=== PATIENT | male | born 1950 | race Two or more races ===

== ENCOUNTER 2017-09-05 08:27 | Outpatient (CLI) | payer OTHER | END 2017-09-05 08:38 | disposition home or self-care (01) | LOC: SONOGRAMA 08:27 | DX: R10.13 Epigastric pain (principal) ==

== ENCOUNTER → 2017-10-16 | Outpatient (CLI) | payer OTHER | END | disposition home or self-care (01) | LOC: SONOGRAMA 07:31 | DX: J32.4 Chronic pansinusitis (principal) ==

== ENCOUNTER → 2017-11-14 12:30 | Outpatient (CLI) | payer OTHER | END | disposition home or self-care (01) | LOC: RAD 12:30 | DX: J41.0 Simple chronic bronchitis (principal) ==

== ENCOUNTER 2018-09-17 14:08 | Outpatient (CLI) | payer OTHER | END 2018-09-17 15:30 | disposition home or self-care (01) | LOC: SONOGRAMA 14:08 | DX: Q44.6 Cystic disease of liver (principal); R10.13 Epigastric pain ==

== ENCOUNTER 2018-09-17 14:45 | Outpatient (CLI) | payer OTHER | END 2018-09-17 14:49 | disposition home or self-care (01) | LOC: RAD 14:45 | DX: M25.562 Pain in left knee (principal); M25.561 Pain in right knee ==

== ENCOUNTER 2018-12-11 11:09 | Outpatient (CLI) | payer OTHER | END 2018-12-11 11:15 | disposition home or self-care (01) | LOC: RAD 11:09 | DX: J21.8 Acute bronchiolitis due to other specified organisms (principal) ==

== ENCOUNTER 2019-02-19 08:09 | Outpatient (CLI) | payer OTHER | END 2019-02-19 09:58 | disposition home or self-care (01) | LOC: RAD 08:09 | DX: M25.512 Pain in left shoulder (principal); M25.511 Pain in right shoulder ==

== ENCOUNTER 2020-08-03 07:21 | Outpatient (CLI) | payer OTHER | END 2020-08-03 07:24 | disposition home or self-care (01) | LOC: SONOGRAMA 07:21 → MAMO-SONO 13:15 | PROVIDERS: ATTEND Internal Medicine Gastroenterology | DX: Q44.6 Cystic disease of liver (principal); R93.2 Abnormal findings on diagnostic imaging of liver and biliary tract ==

== ENCOUNTER 2020-08-22 14:20 | Outpatient (CLI) | payer OTHER | END 2020-08-22 14:23 | disposition home or self-care (01) | LOC: RAD 14:20 | PROVIDERS: ATTEND Orthopaedic Surgery | DX: M25.561 Pain in right knee (principal); M25.562 Pain in left knee ==

== ENCOUNTER → 2020-12-15 11:58 | Outpatient (CLI) | payer OTHER | END | disposition home or self-care (01) | LOC: RAD 11:58 | PROVIDERS: ATTEND Psychiatry & Neurology Psychiatry | DX: I10 Essential (primary) hypertension (principal) ==

== ENCOUNTER 2024-01-23 23:58 | Emergency (ER) | payer OTHER ==
[~2024-01-23] VITALS: Ht 162.6 cm; Wt 69.4 kg
[2024-01-24] MEDS ORDERED: CANDESARTAN CILE8 MG (00:07)
[2024-01-24] MEDS ORDERED: CEFAZOLIN SODIUM 1,000 MG VIAL IM STA (01:23)
[2024-01-24] MEDS ORDERED: TETANUS & DIPHTHERIA TOX,ADULT 0.5 ML VIAL IM STA (01:34)
[2024-01-24] MEDS ORDERED: TETANUS DIPHTHERIA TOX. ADSOR 5 ML VIAL IM ONE (01:44)
[2024-01-24] MEDS ORDERED: LIDOCAINE HCL 1% 10ML VIAL ONE (01:44)
[2024-01-24] MEDS ORDERED: CEFAZOLIN SODIUM 1,000 MG VIAL ONE (01:44)
== END 2024-01-24 02:41 | disposition home or self-care (01) ==
LOC: ER 23:59
DX: S01.111A Laceration without foreign body of right eyelid and periocular area, initial encounter (principal); W18.39XA Other fall on same level, initial encounter; Y93.89 Activity, other specified; Y92.830 Public park as the place of occurrence of the external cause; Y99.9 Unspecified external cause status
CPT/HCPCS: 12013; 90471; 90714; 96372; 99283; J0690; J1670

== ENCOUNTER 2024-04-07 11:53 | Outpatient (CLI) | payer OTHER ==
[~2024-04-07 11:53] MED LIST: CANDESARTAN CILE8 MG
== END 2024-04-07 11:54 | disposition home or self-care (01) ==
LOC: NUCLEAR 11:53
DX: M81.0 Age-related osteoporosis without current pathological fracture (principal); Z87.310 Personal history of (healed) osteoporosis fracture

== ENCOUNTER 2025-01-27 13:12 | Outpatient (CLI) | payer OTHER | END 2025-01-27 13:26 | disposition home or self-care (01) | LOC: LAB 13:12 | PROVIDERS: ATTEND Internal Medicine | DX: R65.20 Severe sepsis without septic shock (principal); A40.9 Streptococcal sepsis, unspecified; A41.4 Sepsis due to anaerobes ==

== ENCOUNTER 2025-03-08 15:37 | Outpatient (CLI) | payer OTHER | END 2025-03-08 16:19 | disposition home or self-care (01) | LOC: RAD 15:37 | DX: J18.9 Pneumonia, unspecified organism (principal) ==